=== PATIENT | female | born 1945 | race Asian ===

== ENCOUNTER → 2016-11-19 | Outpatient (CLI) | payer MEDICARE, OTHER ==
--- NOTE | 2016-11-19 17:52 | RADRPT ---
PROCEDURE: XR Chest. CLINICAL INDICATION: Cough. TECHNIQUE: Single frontal view. COMPARISON: None. FINDINGS: There is mild bilateral interstitial pulmonary disease in the mid and lower lung zones. The lungs a re otherwise clear. The heart is enlarged. There is calcification in the aorta consistent with atherosclerosis. There is no pleural effusion. There is no pneumothorax. IMPRESSION: 1. Mild interstitial disease bilaterally in the mid and lower lung zones. This may indicate pulmon abimael edema or an atypical infectious process. Clinical correlation advised. 2. Cardiomegaly and atherosclerosis. RPTAT: QQ .Buzz Jean MD, MD Date Time Electronically viewed and signed by .Buzz Jean MD, MD on 11/19/2016 17:52 .R/
== END | disposition home or self-care (01) ==
LOC: RAD 16:33
PROVIDERS: ATTEND Internal Medicine
DX: I51.7 Cardiomegaly (principal); I70.90 Unspecified atherosclerosis; J84.9 Interstitial pulmonary disease, unspecified; R05 Cough
CPT/HCPCS: 71010